=== PATIENT | male | born 2005 | race Caucasian/White ===

== ENCOUNTER 2023-10-07 19:55 | Emergency (ER) | payer OTHER ==
[~2023-10-07] VITALS: Ht 172.7 cm; Wt 63.5 kg
[2023-10-07 19:57] VITALS: BP 108/66; PULSE 96; RESP 16; TEMP 97.4; O2SAT 98
[2023-10-07] MEDS ORDERED: AMOX1TAB8 PO (20:17)
[2023-10-07] MEDS ORDERED: DEXA4TAB5 PO (20:17)
[2023-10-07] MEDS ORDERED: LIDOCAINE MPF 1% 5 ML ONE (20:30)
[2023-10-07] MEDS ORDERED: cefTRIAXone 1,000 MG VIAL ONE (20:30)
[2023-10-07] MEDS: cefTRIAXone 1,000 MG in LIDOCAINE MPF 1% 2.1 ML IM ONE (20:37)
[2023-10-07] MEDS: KETOROLAC 60 MG/2 ML VIAL IM ONE (20:39)
== END 2023-10-07 20:28 | disposition home or self-care (01) ==
LOC: MED 19:55
DX: J02.9 Acute pharyngitis, unspecified (principal); Z79.899 Other long term (current) drug therapy
CPT/HCPCS: 96372; 99284; J0696; J1885; J2001